=== PATIENT | female | born 1995 | race African-American/Black ===

== ENCOUNTER 2016-09-03 22:17 | Emergency (ER) | payer BC ==
[2016-09-03 22:31] VITALS: BP 140/90; PULSE 111; TEMP 97.9; BMI 28.1
--- NOTE | 2016-09-03 23:06 | PDOC ---
[id number] No Limitations - History of Present Illness Initial Comments: 09/04/16 00:15 The patient is a 21 year old female, approximately 11 weeks (), with no significant past medical history, who presents to the emergency department complaining of vaginal bleeding for 1 day. She states she had been feeling abdominal cramping and bloating throughout the day. The patient reports she could barely stand due to cramping. The patient states her bleeding began 1 hour before arriving to the emergency room. She reports after urinating she noticed blood after wiping. She describes the blood flow as droplets that were [place] than her menstrual period. She denies any vaginal discharge, frequency, urgency, or dysuria. She denies any chest pain, shortness of breath, palpitations, or diaphoresis. She denies any nausea, vomiting, diarrhea, or constipation. She reports her last ultrasound was 3 days ago, which was completely normal. Allergies: None reported. Past Surgical History: None reported. Social History: Non-smoker. Denies alcohol or drug use. PCP: Dr. Maggie Oneal POCKET CREASER: [facility] residents <Shekhar Mcdaniel - Last Filed: 09/04/16 00:15> <Mary Lou Huff - Last Filed: 09/04/16 01:10> - General Chief Complaint: Vaginal Bleeding Stated Complaint: VAGINAL BLEEDING Time Seen by Provider: 09/03/16 22:42 Past History <Shekhar Mcdaniel - Last Filed: 09/04/16 00:15> - Reproductive History Is Patient Now?: Yes - Immunization History Immunization Up to Date: Yes - Psycho/Social/Smoking Cessation Hx Anxiety: No Suicidal Ideation: No Smoking History: Former smoker Have you smoked in the past 12 months: No Number of Cigarettes Smoked Daily: 2 Information on smoking cessation initiated: No Hx Alcohol Use: No Drug/Substance Use Hx: No Substance Use Type: None <Mary Lou Huff - Last Filed: 09/04/16 01:10> - Past Medical History Allergies/Adverse Reactions: Allergies Allergy/AdvReac Type Severity Reaction Status Date / Time No Known Allergies Allergy Verified 09/03/16 22:27 Home Medications: Ambulatory Orders NK [No Known Home Medication] 09/03/16 Review of Systems - Review of Systems Able to Perform ROS?: Yes Comments:: 09/04/16 00:16 GENERAL/CONSTITUTIONAL: No fever or chills. No weakness. HEAD, EYES, EARS, NOSE AND THROAT: No change in vision. No ear pain or discharge. No sore throat. CARDIOVASCULAR: No chest pain or shortness of breath. RESPIRATORY: No cough, wheezing, or hemoptysis. GASTROINTESTINAL: +Abdominal cramping and bloating. No nausea, vomiting, diarrhea or constipation. GENITOURINARY: +Vaginal bleeding. No dysuria, frequency, or change in urination. MUSCULOSKELETAL: No joint or muscle swelling or pain. No neck or back pain. SKIN: No rash NEUROLOGIC: No headache, vertigo, loss of consciousness, or change in strength/ sensation. ENDOCRINE: No increased thirst. No abnormal weight change. HEMATOLOGIC/LYMPHATIC: No anemia, easy bleeding, or history of blood clots. ALLERGIC/IMMUNOLOGIC: No hives or skin allergy. <JonasGiomilsy - Last Filed: 09/04/16 00:15> *Physical Exam - Vital Signs Last Vital Signs Temp Pulse Resp BP Pulse Ox 97.9 F 111 H 22 140/90 100 09/03/16 22:30 09/03/16 22:30 09/03/16 22:30 09/03/16 22:30 09/03/16 22:30 - Physical Exam Comments: 09/04/16 00:17 GENERAL: Awake, alert, and fully oriented, in no acute distress HEAD: No signs of trauma EYES: PERRLA, EOMI, sclera anicteric, conjunctiva clear ENT: Auricles normal inspection, hearing grossly normal, nares patent, oropharynx clear without exudates. Moist mucosa NECK: Normal ROM, supple, no lymphadenopathy, JVD, or masses LUNGS: Breath sounds equal, clear to auscultation bilaterally. No wheezes, and no crackles HEART: Regular rate and rhythm, normal S1 and S2, no murmurs, rubs or gallops ABDOMEN: Soft, nontender, normoactive bowel sounds. No guarding, no rebound. No masses EXTREMITIES: Normal range of motion, no edema. No clubbing or cyanosis. No cords, erythema, or tenderness NEUROLOGICAL: Cranial nerves II through XII grossly intact. Normal speech, normal gait SKIN: Warm, Dry, normal turgor, no rashes or lesions noted. <Shekhar Mcdaniel - Last Filed: 09/04/16 00:15> - Vital Signs Last Vital Signs Temp Pulse Resp BP Pulse Ox 97.9 F 111 H 22 140/90 100 09/03/16 22:30 09/03/16 22:30 09/03/16 22:30 09/03/16 22:30 09/03/16 22:30 - Physical Exam Comments: : No external lesions. Trace blood in the vault. Os closed. <Mary Lou Huff - Last Filed: 09/04/16 01:10> ED Treatment Course - LABORATORY CBC & Chemistry Diagram: 09/03/16 22:58 09/03/16 22:58 - ADDITIONAL ORDERS Additional order review: Laboratory Results 09/03/16 09/03/16 23:53 22:58 Sodium 139 Potassium 3.6 Chloride 105 Carbon Dioxide 23 Anion Gap 11 BUN 9 D Creatinine 0.6 Creat Clearance w eGFR > 60 Random Glucose 81 Calcium 8.8 Total Bilirubin 0.6 D AST 17 ALT 18 Alkaline Phosphatase 45 D Total Protein 6.8 Albumin 3.5 Beta HCG, Quant 98499.6 Urine Color Yellow Urine Appearance Slcloudy Urine pH 5.0 Ur Specific Vesper 1.023 Urine Protein Negative Urine Glucose (UA) Negative Urine Ketones Negative Urine Blood 3+ H Urine Nitrite Negative Urine Bilirubin Negative Urine Urobilinogen Negative Ur Leukocyte Esterase Trace H Urine HCG, Qual Positive 09/03/16 22:58 RBC 4.57 MCV 79.2 L MCHC 33.5 RDW 12.8 MPV 8.5 Neutrophils % 51.7 D Lymphocytes % 36.0 D Monocytes % 8.8 Eosinophils % 2.6 D Basophils % 0.9 D <Shekhar Mcdaniel - Last Filed: 09/04/16 00:15> - LABORATORY CBC & Chemistry Diagram: 09/03/16 22:58 09/03/16 22:58 <Mary Lou Huff - Last Filed: 09/04/16 01:10> Medical Decision Making - Medical Decision Making Sono results d/w patient. Counseled her about pelvic rest until she can f/u with pelt dropper. <Mary Lou Huff - Last Filed: 09/04/16 01:10> *DC/Admit/Observation/Transfer - Attestations Scribe Attestion: 01/22/17 00:17 Documentation prepared by Shekhar Mcdaniel, acting as medical scheduler for Mary Lou Huff MD. <Shekhar Mcdaniel - Last Filed: 09/04/16 00:15> - Discharge Dispostion Admit: No <Mary Lou Huff - Last Filed: 09/04/16 01:10> Diagnosis at time of Disposition: Threatened miscarriage - Discharge Dispostion Disposition: HOME Condition at time of disposition: Stable - Referrals Referrals: Maggie Oneal MD [Primary Care Provider] - - Patient Instructions Printed Discharge Instructions: DI for Threatened Additional Instructions: PELVIC REST- NO DOUCHING, TAMPONS, INTERCOURSE UNTIL YOU CAN SEE YOUR CASE MANAGEMENT SPECIALIST.
[2016-09-03 23:07] LABS: BASOPHIL 0.9 % (0-2.0); EOSINOPHIL 2.6 % (0-4.5); MCH 26.6 pg (25.7-33.7); MCHC 33.5 g/dl (32.0-36.0); MEAN CELL VOLUME 79.2 fl (80-96); MEAN PLT VOLUME 8.5 fl (7.5-11.1); NEUTROPHILS 51.7 % (42.8-82.8); PLATELET COUNT 186 K/MM3 (134-434); RDW 12.8 % (11.6-15.6); WHITE BLOOD COUNT 4.7 K/mm3 (4.0-10.0)
[2016-09-03 23:39] LABS: ALBUMIN 3.5 g/dl (3.4-5.0); ANION GAP 11 (8-16); BILIRUBIN,TOTAL 0.6 mg/dL (0.2-1.0); CALCIUM 8.8 mg/dL (8.5-10.1); CO2 23 mmol/L (21-32); CREATININE 0.6 mg/dL (0.55-1.02); GLUCOSE,RANDOM 81 mg/dL (74-106); SGOT/AST 17 U/L (15-37); SGPT/ALT 18 U/L (12-78); TOT PROT 6.8 g/dl (6.4-8.2)
[2016-09-03 23:54] LABS: ALK PHOS 45 U/L (45-117)
[2016-09-04 00:06] LABS: URINE APPEARANCE SLCLOUDY; URINE BILIRUBIN NEGATIVE (NEGATIVE); URINE COLOR YELLOW; URINE GLUCOSE (UA) NEGATIVE (NEGATIVE); URINE KETONE NEGATIVE (NEGATIVE); URINE NITRITE NEGATIVE (NEGATIVE); URINE PROTEIN NEGATIVE (NEGATIVE); URINE UROBILINOGEN NEGATIVE E.U./dl (0.2-1.0)
[2016-09-04 00:10] LABS: URINE BLOOD 3+ (NEGATIVE); URINE LEUK ESTERASE TRACE (NEGATIVE)
[2016-09-04 00:11] LABS: CALCIUM OXALATE CRYSTALS MODERATE /hpf (NONE SEEN); URINE BACTERIA FEW /hpf (NONE SEEN); URINE HYALINE CAST 1 /lpf; URINE MUCUS FEW; URINE RBC 266 /hpf (0-3); URINE WBC 5 /hpf (3-5)
== END 2016-09-04 00:57 | disposition home or self-care (01) ==
LOC: JER 22:17
DX: O20.0 Threatened abortion (principal); Z3A.11 11 weeks gestation of pregnancy
CPT/HCPCS: 36415; 76817-TC; 80053; 81003; 81015; 84702; 84703; 85025; 86850; 86900; 86901; 99282-25

== ENCOUNTER 2017-02-15 22:57 | Emergency (ER) | payer BC ==
[2017-02-15 23:15] VITALS: BP 118/65; PULSE 84; TEMP 98.2; BMI 34.4
--- NOTE | 2017-02-16 02:31 | PDOC ---
History of Present Illness - General Chief Complaint: Ear Problem Stated Complaint: EAR PROBLEM/34 WKS Time Seen by Provider: 02/16/17 01:19 History Source: Patient Exam Limitations: No Limitations - History of Present Illness Initial Comments: 02/16/17 02:26 21yo Female Patient 23 weeks presents to ED c/o left ear pain. Patient states she went hiking today and felt a bug go into her ear, she tried using q- tip and now is hearing crunching in left ear. She is concern bug maybe in her ear. Denies any other complaints at this time. Timing/Duration: 4-6 hours Severity: mild Modifying Factors: worse with: cold therapy, eating, immobilization, medication , movement, rest, other Associated Symptoms: denies: denies symptoms, chest pain, cough, diaphoresis, fever/chills, headaches, loss of appetite, malaise, nausea/vomiting, rash, seizure, shortness of breath, syncope, weakness, other Aspirin Received prior to arrival: No: no aspirin today, unknown, 81 mg x 1, 81 mg x 2, 81 mg x 3, 81 mg x 4, 325 mg x 1, provided at home, provided by EMS, provided by ED [facility] Contraindications(Core Measure): No: Allergy, Other, Active Blding w/i 24 hrs., Plavix, Receiving Warfarin Past History - Travel Traveled outside of the country in the last 30 days: No Close contact w/someone who was outside of country & ill: No - Past Medical History Allergies/Adverse Reactions: Allergies Allergy/AdvReac Type Severity Reaction Status Date / Time No Known Allergies Allergy Verified 02/15/17 23:15 Home Medications: Ambulatory Orders NK [No Known Home Medication] 09/03/16 Other medical history: denies - Immunization History Immunization Up to Date: Yes - Psycho/Social/Smoking Cessation Hx Anxiety: No Suicidal Ideation: No Smoking History: Never smoked Have you smoked in the past 12 months: No Number of Cigarettes Smoked Daily: 2 Information on smoking cessation initiated: No Hx Alcohol Use: No Drug/Substance Use Hx: No Substance Use Type: None Review of Systems - Review of Systems Able to Perform ROS?: Yes Is the patient limited Chinese proficient: No HEENTM: Yes: Ear Pain All Other Systems: Reviewed and Negative *Physical Exam - Vital Signs Last Vital Signs Temp Pulse Resp BP Pulse Ox 98.2 F 84 18 118/65 99 02/15/17 23:13 02/15/17 23:13 02/15/17 23:13 02/15/17 23:13 02/15/17 23:13 - Physical Exam General Appearance: Yes: Nourished, Appropriately Dressed. No: Apparent Distress, Mild Distress, Moderate Distress, Severe Distress HEENT: positive: EOMI, HUGH, Normal ENT Inspection, Normal Voice, Symmetrical, TMs Normal, Pharynx Normal. negative: Pharyngeal Erythema, Tonsillar Exudate, Tonsillar Erythema, Nasal Congestion, Rhinorrhea, TM Bulging, TM Dull, TM Erythema Neck: positive: Trachea midline, Normal Thyroid, Supple. negative: Stridor, Lymphadenopathy (R), Lymphadenopathy (L), Tender lateral, Tender midline Respiratory/Chest: positive: Lungs Clear, Normal Breath Sounds. negative: Chest Tender, Respiratory Distress, Accessory Muscle Use, Labored Respiration, Rapid RR Cardiovascular: positive: Regular Rhythm, Regular Rate Extremity: positive: Normal Capillary Refill, Normal Inspection, Normal Range of Motion. negative: Pedal Edema, Swelling, Calf Tenderness, Erythema Integumentary: positive: Normal Color, Dry, Warm. negative: Erythema, Rash, Swelling Neurologic: positive: line controller II-XII NML intact, Fully Oriented, Alert, Normal Mood/ Affect, Normal Response, Motor Strength 5/5 *DC/Admit/Observation/Transfer Diagnosis at time of Disposition: Right ear pain - Discharge Dispostion Disposition: HOME Condition at time of disposition: Good Admit: No - Patient Instructions Printed Discharge Instructions: DI for Ear Pain-Adult Additional Instructions: Follow up with your primary care provider as needed. Print Language: MAURITIAN
== END 2017-02-16 03:03 | disposition home or self-care (01) ==
LOC: JER 22:57
DX: H92.01 Otalgia, right ear (principal); Z3A.23 23 weeks gestation of pregnancy
CPT/HCPCS: 99281-25

== ENCOUNTER 2021-12-19 12:42 | Emergency (ER) | payer BC ==
[2021-12-19 12:58] VITALS: TEMP 98.8; BMI 37.5
[2021-12-19] MEDS ORDERED: SODIUM CHLORIDE 1,000 ML IV STA (13:59)
[2021-12-19 14:45] LABS: BASO % 0.9 % (0-2.0); EOS % 1.8 % (0-4.5); HEMOGLOBIN 13.9 GM/dL (10.7-15.3); MCH 25.9 pg (25.7-33.7); MCHC 33.2 g/dl (32.0-36.0); MEAN PLT VOLUME 8.5 fl (7.5-11.1); MONO % 5.2 % (3.8-10.2); NEUT % 51.1 % (42.8-82.8); PLATELET COUNT 255 10^3/uL (134-434); RBC 5.38 M/mm3 (3.60-5.2); RDW 13.7 % (11.6-15.6); WHITE BLOOD COUNT 4.2 K/mm3 (4.0-10.0)
[2021-12-19 14:53] LABS: INR 0.96 (0.83-1.09)
[2021-12-19 14:55] LABS: ACTIVATED PTT 32.4 SECONDS (25.2-36.5)
[2021-12-19 15:11] LABS: CALCIUM 8.8 mg/dL (8.5-10.1)
[2021-12-19 15:12] LABS: ALBUMIN 3.9 g/dl (3.4-5.0); BLOOD UREA NITROGEN 12.9 mg/dL (7-18); MAGNESIUM 2.1 mg/dL (1.8-2.4)
[2021-12-19 15:15] LABS: CREATININE 0.8 mg/dL (0.55-1.3)
[2021-12-19 15:16] LABS: BILIRUBIN,TOTAL 0.5 mg/dL (0.2-1); TOT PROT 7.6 g/dl (6.4-8.2)
[2021-12-19 17:23] VITALS: BP 132/32; PULSE 102
[2021-12-19 21:12] LABS: PH,URINE 6.5 (5.0-8.0); URINE APPEARANCE CLEAR; URINE BILIRUBIN NEGATIVE (NEGATIVE); URINE COLOR YELLOW; URINE GLUCOSE (UA) NEGATIVE (NEGATIVE); URINE KETONE NEGATIVE (NEGATIVE); URINE LEUK ESTERASE NEGATIVE (NEGATIVE); URINE NITRITE NEGATIVE (NEGATIVE); URINE PROTEIN NEGATIVE (NEGATIVE); URINE UROBILINOGEN 0.2 mg/dL (0.2-1.0)
== END 2021-12-19 20:44 | disposition home or self-care (01) ==
LOC: JER 12:42
PROC: 3E0337Z Introduction of Electrolytic and Water Balance Substance into Peripheral Vein, Percutaneous Approach (ICD-10-PCS; principal; 2021-12-19)
DX: R07.9 Chest pain, unspecified (principal)
CPT/HCPCS: 36415; 71046-TC-FY; 71275-TC; 80053; 81003; 83735; 84443; 84484; 85025; 85610; 85730; 93005; 93010; 99285-25; Q9967